=== PATIENT | female | born 1995 | race Caucasian/White ===

== ENCOUNTER 2019-08-05 11:45 | Emergency (ER) | payer BC, SELFPAY ==
[2019-08-05 11:48] VITALS: BP 130/82; PULSE 93; RESP 16; TEMP 36.7; O2SAT 99
--- NOTE | 2019-08-05 12:07 | ED.GENADULT ---
HPI - General Adult General Chief complaint: Upper Respiratory Infection Stated complaint: sore throat/cough/mucus Time Seen by Provider: 08/05/19 12:09 Source: patient Mode of arrival: ambulatory Limitations: no limitations History of Present Illness HPI narrative: 23-year-old female patient presents to the [facility] with complaints of allergies and sinus symptoms. Patient states that she typically gets these symptoms this time a year when the weather starts to change. Patient states that she has had a raspy voice, drainage to the back of the throat, runny nose, stuffy nose and a little bit of pressure to the head. Denies any fevers, body aches, chills. Patient states she does not think she has strep throat. Patient wound make sure that she did not need antibiotics for a sinus infection. Patient states her symptoms have been going on for about 3 to 4 days. Patient states she has tried Sudafed and Zyrtec for her symptoms. Related Data Home Medications Medication Instructions Recorded Confirmed Lo Loestrin Fe 1 tablet PO DAILY 04/01/19 04/01/19 Ozempic 0.5 mg SUBCUT WEEKLY 04/01/19 04/01/19 metformin 500 mg PO BID 04/01/19 04/01/19 propranolol 20 mg PO DAILY 08/05/19 08/05/19 Allergies Allergy/AdvReac Type Severity Reaction Status Date / Time amitriptyline Allergy Unknown ITCHING Verified 03/31/19 21:06 erythromycin base Allergy Unknown Unknown Verified 03/31/19 21:06 gabapentin Allergy Unknown ITCHING Verified 03/31/19 21:06 peanut Allergy Unknown Unknown Verified 03/31/19 21:06 tramadol Allergy Unknown ITCHING Verified 03/31/19 21:06 tree nuts Allergy Anaphylaxis Uncoded 08/05/19 11:52 Review of Systems Review of Systems: Narrative: CONSTITUTIONAL: Denies fever, chills, or sweats. EYES: Denies visual changes, redness, or discharge. ENT: Positive rhinorrhea, congestion, sore throat, denies otalgia. CARDIOVASCULAR: Denies chest pain, palpitations, or edema. RESPIRATORY: Positive mild nonproductive cough, denies dyspnea. GASTROINTESTINAL: Denies abdominal pain, nausea, vomiting, or diarrhea. GENITOURINARY: Denies dysuria or hematuria. SKIN: Denies rash or itching. MUSCULOSKELETAL: Denies back pain, joint pain, or myalgia. NEUROLOGIC: Denies headache, numbness, or weakness. PSYCHIATRIC: Denies anxiety or depression. [facility] Past Medical History Medical History Morbid obesity with BMI of 45.0-49.9, adult Polycystic ovarian syndrome Surgical History Surgical History History of root canal procedure Hx of tonsillectomy [place] teeth extracted Family History Family History Grandparent Hypertension Malignant neoplasm of prostate Family history of malignant neoplasm of male breast Family history of coronary artery disease Diabetes mellitus Sibling Family history of mental disorder Other Cerebrovascular accident Family history of allergic disorder Family history of cardiovascular disease Family history of elevated blood lipids Social History Social History Social History: She lives in [place] with her parents and 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 Smoking status: Never smoker Substance use: never Gender identity (if verbalized by the patient): Female Spiritual care concerns: No Agree to blood products: Yes Comments At the time of my signature I agree with nursing past medical history, surgical, social, and family history. There is no relevant family history pertinent to the presenting complaint. Exam Narrative: Exam Narrative: GENERAL: Well-appearing, well-nourished, and in no acute distress. HEAD: Normocephalic, atraumatic. Slight tenderness noted to maxillary sinuses EYES: PERRLA and EOMI. ENT: Nares with erythema and edema noted bilaterally, no rhino
== END 2019-08-05 12:23 | disposition home or self-care (01) ==
PROVIDERS: Emergency Provider Nurse Practitioner Family
DX: J30.2 Other seasonal allergic rhinitis (principal); E66.01 Morbid (severe) obesity due to excess calories; Z68.42 Body mass index [BMI] 45.0-49.9, adult
CPT/HCPCS: 99211; G0463

== ENCOUNTER 2020-09-03 13:33 | Outpatient (CLI) | payer OTHER, SELFPAY ==
--- NOTE | ~2020-09-03 | XR_ITS ---
EXAMINATION: XR lumbar spine min 4V DATE: 09/03/2020 14:27 INDICATION: Acute low back pain TECHNIQUE: Anteroposterior, lateral, and bilateral oblique views of the lumbar spine, and cone-down l ateral view of the lumbosacral junction were obtained. COMPARISON: 03/04/2015 FINDINGS: There is no fracture, dislocation, or subluxation. The vertebral body heights, alignment, a nd intervertebral disc spaces are normal. IMPRESSION: 1. No acute osseous abnormality. Reviewed, dictated and finalized at location A.
--- NOTE | ~2020-09-03 | XR_ITS ---
EXAMINATION: XR thoracic spine 2V DATE: 09/03/2020 14:26 INDICATION: Right-sided back pain TECHNIQUE: AP and lateral views of the thoracic spine were obtained. COMPARISON: 03/04/2015 FINDINGS: There is chronic unchanged mild anterior wedging in the midthoracic spine. Vertebral body h eights are otherwise maintained. There is no fracture. Alignment is normal. The intervertebral disc s pace heights are maintained. IMPRESSION: 1. No acute osseous abnormality. Reviewed, dictated and finalized at location A.
--- NOTE | ~2020-09-03 | US_ITS ---
EXAMINATION: US soft tissue lower back DATE: 09/03/2020 14:13 INDICATION: Left low back mass. TECHNIQUE: Multiple grayscale and Doppler ultrasound images of the left lower back were obtained. COMPARISON: CT abdomen and pelvis 04/18/2009 FINDINGS: There is no abnormal mass in the patient's area of concern in the left lower back. IMPRESSION: 1. No abnormal mass in the patient's area of concern in the left lower back. Reviewed, dictated and finalized at location A.
== END 2020-09-03 13:34 | disposition home or self-care (01) ==
DX: R22.2 Localized swelling, mass and lump, trunk (principal); M54.6 Pain in thoracic spine
CPT/HCPCS: 72070; 72110; 76705

== ENCOUNTER 2021-03-04 16:58 | Emergency (ER) | payer OTHER, SELFPAY ==
--- NOTE | ~2021-03-04 | XR_ITS ---
EXAMINATION: XR finger 3rd LT min 2V DATE: 03/04/2021 17:21 INDICATION: Left hand third digit injury and pain and swelling. TECHNIQUE: 4 views of left hand third digit were obtained. COMPARISON: None. FINDINGS: Bone alignment is normal. No fracture. Joint spaces are well maintained. IMPRESSION: 1. No fracture. Reviewed, dictated and finalized at location A. IMPRESSION: 1. No fracture.
[2021-03-04 17:06] VITALS: BP 167/92; PULSE 94; RESP 16; TEMP 36.4; O2SAT 100
--- NOTE | 2021-03-04 17:24 | ED.UPPEXIN ---
HPI - Extremity Injury (Upper) General Chief Complaint: Extremity Injury, Upper Stated Complaint: lt hand finger injury Time Seen by Provider: 03/04/21 17:15 Source: patient, RN notes reviewed and old records reviewed Mode of arrival: ambulatory Limitations: no limitations History of Present Illness HPI narrative: 25-year-old female who presents to [facility] with complaints of injury to her dorsal middle finger when she was carrying a moving box of hard bound books and ran into door frame hitting her finger. Patient has swelling and bruising to her left middle finger dorsal aspect at the mid aspect of finger PIP area with pain on movement. Patient denies any tingling or numbness to her left middle finger or hand, nail bed has brisk capillary refill. MD complaint: injury to: finger Related Data Home Medications Medication Instructions Recorded Confirmed Lo Loestrin Fe 1 tablet PO DAILY 04/01/19 04/01/19 Zyrtec 03/04/21 spironolactone 03/04/21 Allergies Allergy/AdvReac Type Severity Reaction Status Date / Time amitriptyline Allergy Unknown ITCHING Verified 03/31/19 21:06 erythromycin base Allergy Unknown Unknown Verified 03/31/19 21:06 gabapentin Allergy Unknown ITCHING Verified 03/31/19 21:06 peanut Allergy Unknown Unknown Verified 03/31/19 21:06 tramadol Allergy Unknown ITCHING Verified 03/31/19 21:06 tree nuts Allergy Anaphylaxis Uncoded 08/05/19 11:52 Review of Systems Review of Systems: CONSTITUTIONAL: Denies fever, chills, or sweats. EYES: Denies visual changes, redness, or discharge. ENT: Denies rhinorrhea, congestion, sore throat, or otalgia. CARDIOVASCULAR: Denies chest pain, palpitations, or edema. RESPIRATORY: Denies cough or dyspnea. GASTROINTESTINAL: Denies abdominal pain, nausea, vomiting, or diarrhea. GENITOURINARY: Denies dysuria or hematuria. SKIN: Denies rash or itching. MUSCULOSKELETAL: Denies back pain,positive for pain to left middle finger dorsal aspect pip joint area, or myalgia. NEUROLOGIC: Denies headache, numbness, or weakness. PSYCHIATRIC: Denies anxiety or depression. All systems reviewed & are unremarkable except as noted in HPI and below PMFSH Past Medical History Medical History (Updated 03/04/21 @ 18:03 by Soo Burciaga NP) Asthma Eczema Fracture of both arms Morbid obesity with BMI of 45.0-49.9, adult Pneumonia Polycystic ovarian syndrome Surgical History Surgical History (Updated 03/04/21 @ 18:04 by Soo Burciaga NP) History of ear surgery History of root canal procedure Hx of tonsillectomy [place] teeth extracted Family History Family History Grandparent Hypertension Malignant neoplasm of prostate Family history of malignant neoplasm of male breast Family history of coronary artery disease Diabetes mellitus Sibling Family history of mental disorder Other Cerebrovascular accident Family history of allergic disorder Family history of cardiovascular disease Family history of elevated blood lipids Social History Social History Social History: She lives in [place] with 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 Smoking status: Never smoker Alcohol use details: Socially, once every few months Substance use: never Gender identity (if verbalized by the patient): Female Spiritual care concerns: No Agree to blood products: Yes Comments At time of signature, agree with nursing past medical, surgical, social and family history. There is no relevant family history pertinent to the presenting complaint Exam Narrative: GENERAL: Well-appearing, well-nourished, and in no acute distress. HEAD: Normocephalic, atraumatic. EYES: PERRLA and EOMI. ENT: Nares clear, no rhinorrhea or epistaxis. Mucous membranes moist. NECK: Supple.no lymphadenopathy CHEST: Clear to auscultation. No respiratory distress. HE
== END 2021-03-04 17:45 | disposition home or self-care (01) ==
PROVIDERS: Emergency Provider Registered Nurse
DX: S60.032A Contusion of left middle finger without damage to nail, initial encounter (principal); W22.09XA Striking against other stationary object, initial encounter; J45.909 Unspecified asthma, uncomplicated; E66.01 Morbid (severe) obesity due to excess calories; Z68.42 Body mass index [BMI] 45.0-49.9, adult; E28.2 Polycystic ovarian syndrome
CPT/HCPCS: 73140; 99213; G0463

== ENCOUNTER 2021-10-11 11:01 | Emergency (ER) | payer BC, SELFPAY ==
[2021-10-11 11:24] VITALS: BP 156/108; PULSE 83; RESP 16; TEMP 36.2; O2SAT 100
--- NOTE | 2021-10-11 12:11 | ED.GENADULT ---
HPI - General Adult General Chief complaint: Skin/Abscess/Foreign Body Stated complaint: LUMP ON STOMACH Time Seen by Provider: 10/11/21 12:11 Source: patient Mode of arrival: ambulatory Limitations: no limitations History of Present Illness HPI narrative: 25-year-old female patient presents to the [facility] with complaints of a lump on the stomach since August. Patient states she feels like the lump is getting bigger but denies any pain to the area. Denies that it is moving around. Denies any fevers, body aches or chills. Denies any weight loss. Patient does have a history of PCOS which she is just taking control for. Denies any nausea, vomiting or diarrhea. Colic states that she has called to try and get in with her primary doctor but they cannot see her until December. Related Data Home Medications Medication Instructions Recorded Confirmed Lo Loestrin Fe 1 tablet PO DAILY 04/01/19 04/01/19 Zyrtec 03/04/21 spironolactone 03/04/21 Allergies Allergy/AdvReac Type Severity Reaction Status Date / Time amitriptyline Allergy Unknown ITCHING Verified 03/31/19 21:06 erythromycin base Allergy Unknown Unknown Verified 03/31/19 21:06 gabapentin Allergy Unknown ITCHING Verified 03/31/19 21:06 peanut Allergy Unknown Unknown Verified 03/31/19 21:06 tramadol Allergy Unknown ITCHING Verified 03/31/19 21:06 tree nuts Allergy Anaphylaxis Uncoded 08/05/19 11:52 Review of Systems Review of Systems: CONSTITUTIONAL: Denies fever, chills, or sweats. EYES: Denies visual changes, redness, or discharge. ENT: Denies rhinorrhea, congestion, sore throat, or otalgia. CARDIOVASCULAR: Denies chest pain, palpitations, or edema. RESPIRATORY: Denies cough or dyspnea. GASTROINTESTINAL: Denies abdominal pain, nausea, vomiting, or diarrhea. Positive mass to abdomen since August GENITOURINARY: Denies dysuria or hematuria. SKIN: Denies rash or itching. MUSCULOSKELETAL: Denies back pain, joint pain, or myalgia. NEUROLOGIC: Denies headache, numbness, or weakness. PSYCHIATRIC: Denies anxiety or depression. [facility] Past Medical History Medical History Asthma Eczema Fracture of both arms Morbid obesity with BMI of 45.0-49.9, adult Pneumonia Polycystic ovarian syndrome Surgical History Surgical History History of ear surgery History of root canal procedure Hx of tonsillectomy [place] teeth extracted Family History Family History Grandparent Hypertension Malignant neoplasm of prostate Family history of malignant neoplasm of male breast Family history of coronary artery disease Diabetes mellitus Sibling Family history of mental disorder Other Cerebrovascular accident Family history of allergic disorder Family history of cardiovascular disease Family history of elevated blood lipids Social History Social History Social History: She lives in [place] with her parents and 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 Smoking status: Never smoker Alcohol use details: Socially, once every few months Substance use: never Gender identity (if verbalized by the patient): Female Spiritual care concerns: No Agree to blood products: Yes Comments At the time of my signature I agree with nursing past medical history, surgical, social, and family history. There is no relevant family history pertinent to the presenting complaint. Exam Narrative: GENERAL: Well-appearing, well-nourished, and in no acute distress. HEAD: Normocephalic, atraumatic. EYES: PERRLA and EOMI. ENT: Nares clear, no rhinorrhea or epistaxis. Mucous membranes moist. NECK: Supple. No lymphadenopathy CHEST: Clear to auscultation. No respiratory distress. HEART: Regular rate and rhythm. No murmur heard. Normal peripheral pulses.
== END 2021-10-11 12:39 | disposition home or self-care (01) ==
PROVIDERS: Emergency Provider Nurse Practitioner Family
DX: R19.02 Left upper quadrant abdominal swelling, mass and lump (principal); J45.909 Unspecified asthma, uncomplicated; E28.2 Polycystic ovarian syndrome; E66.01 Morbid (severe) obesity due to excess calories; Z68.42 Body mass index [BMI] 45.0-49.9, adult
CPT/HCPCS: 99211; G0463

== ENCOUNTER → 2021-10-20 14:55 | Outpatient (CLI) | payer BC, SELFPAY ==
--- NOTE | ~2021-10-20 | CT_ITS ---
EXAMINATION: CT abdomen wo con DATE: 10/20/2021 15:22 INDICATION: Palpable left upper quadrant abdominal mass TECHNIQUE: Computed tomography (CT) of the abdomen and pelvis was performed without intravenous contr ast. Automated exposure control and iterative reconstruction technique were employed. The dose-length product was 732.77 mGy-cm. COMPARISON: None FINDINGS: Lower thorax: Unremarkable Liver: Normal. Biliary/Gallbladder: Gallbladder is normal. No bile duct dilation. Pancreas: No mass or duct dilation. Spleen: Normal. Adrenals:No mass. Kidneys: No mass, stone, or hydronephrosis. GI tract: No small or large bowel dilation. Normal partially visualized appendix. Mesentery/Peritoneum: No ascites, mass, or free air. Retroperitoneum: No mass. Soft Tissues: Soft tissues and body wall unremarkable. No abnormality detected in the left upper quad rant or deep to the region of the radiopaque marker. Bones: No acute osseous finding. IMPRESSION: Normal CT abdomen findings. No CT evidence of a left upper quadrant mass. Reviewed, dictated and finalized at location K.
== END ==
DX: R19.00 Intra-abdominal and pelvic swelling, mass and lump, unspecified site (principal)
CPT/HCPCS: 74150

== ENCOUNTER → 2022-07-30 13:35 | Outpatient (CLI) | payer BC, SELFPAY ==
--- NOTE | ~2022-07-30 | MR_ITS ---
MRI of the right ankle Clinical history: Tenosynovitis Technique: Coronal proton-density and proton-density fat-sat images, axial proton-density and proton- density fat-sat images, and sagittal proton-density and proton-density fat-sat images were acquired. Findings: Syndesmotic ligaments are intact. Anterior and posterior talofibular ligaments, and calcane ofibular ligament are intact. Deltoid ligament is intact. Medial flexor tendons, peroneal tendons, anterior extensor tendons, and Achilles tendon are intact. There is no osteochondral lesion of the talar dome. Bone marrow signals are unremarkable. Visualized joint spaces are intact. No significant joint effusion identified. Plantar fascia is intact. Normal signal preserved in the sinus Tarsi. There is subcutaneous soft tiss ue edema about the ankle, lateral side worse than medial. No abscess or focal fluid collection identi fied. Impression: Subcutaneous soft tissue edema about the ankle, nonspecific. No other significant abnormality identified. Reviewed, dictated and finalized at [facility]. [facility] Impression: Subcutaneous soft tissue edema about the ankle, nonspecific. No other significant abnormality identified.
== END ==
PROVIDERS: PCP Podiatrist Foot & Ankle Surgery; Visit Provider Podiatrist Foot & Ankle Surgery
DX: M65.871 Other synovitis and tenosynovitis, right ankle and foot (principal); M79.89 Other specified soft tissue disorders
CPT/HCPCS: 73721

== ENCOUNTER 2022-09-02 00:07 | Day surgery (SDC) | payer BC, SELFPAY ==
[2022-08-26 09:43] VITALS: BMI 50.8
--- NOTE | 2022-08-26 09:48 | PC.NURSE ---
Report to the Outpatient Waiting Room, entrance under the green pavilion located off [facility], at time 0600 on date 09/02/22. Planned Procedure Time: 0730. Time changes happen often and if your time is changed the preop area will call you the afternoon before. - You and your visitor will be asked to self-screen and do not enter if you have any COVID symptoms. - Only one visitor is requested with a max of two and NO children visitors are allowed at this time. - The patient visitor may be requested to leave or wait in car when not with patient due to distancing restrictions. - A mask is optional within the hospital at this time. Patients may have clear liquids (water, carbonated beverages, clear teas, apple juice) until 3 hours prior to surgery with a maximum of 20 ounces. - No food from midnight until time of surgery Take the following medications with a SIP of water the morning of surgery: TYLENOL IF NEEDED DO NOT STOP ANY OF YOUR OTHER PRESCRIPTION MEDICATIONS PRIOR TO SURGERY EXCEPT THE FOLLOWING Medications to discontinue per physician: VITAMINS/SUPPLEMENTS Date to take last dose: 08/29/22 Please no make-up, nail citizen of [place], hairspray, perfume, deodorant, or body powder the day of surgery. No jewelry (including any body piercings) or valuables the day of surgery, leave them at home. Please take a shower or bath the night before, or the morning of, surgery with an antibacterial soap. Wear comfortable, loose fitting clothing. - Jewelry must be removed prior to entering the operating room. Rings and piercings that are not removed may be cut off. - The hospital will not accept responsibility for valuables. - Please leave all valuables, including medications, at home the day of surgery. If you are going home after surgery, a licensed stake driver must drive you home. - NO public transportation without another adult if you receive anesthesia. - We recommend that an adult stay with you for 24 hours following discharge. - We also recommend that you do not drive, make important decision, drink alcoholic beverages, or take any drugs that were not prescribed by your health care provider for at least 24 hours after your discharge time. Follow any additional instructions given to you from your surgeon. If you or anyone in your household have experienced Covid symptoms in the past week, please notify your surgeon or the nurse liaison at the phone number below for possible testing. Telephone instructions given to PT - TRENT HANSON and asked if any additional questions and then verbalized understanding. Patient advised to call surgeon office or pre surgery nurse liaison [phone] if any additional questions.
[2022-09-02] VITALS (9 sets, daily range): BP systolic 106–141; BP diastolic 61–93; PULSE 92–109; RESP 12–25; TEMP 36.2–36.3; O2SAT 98–100
[2022-09-02] MEDS: LACTATED RINGERS 1,000 ML 30 ML IV CONT ×2 (07:00→09:22)
--- NOTE | 2022-09-02 07:17 | WPDHPUPDATE1 ---
History and Physical Update Update Date/Time: 09/02/22 07:17 History and Physical has been reviewed, including an updated exam of the patient. There are NO changes in the patient's condition. Risks, benefits, and alternatives have been discussed and questions answered. Patient agrees to proceed with procedure.
--- NOTE | 2022-09-02 07:23 | WPDANESEPPF ---
Anes - Initial Pre Proc Eval Procedure: Operation Date: 09/02/22 07:30 Proposed Procedures p Incision and Drainage Complicated Pilonidal Cyst - Nehemias Hoyos MD Date/Time: 09/02/22 07:23 Surgeon: Nehemias Hoyos MD Pre Op Diagnosis: Pilonidal Cyst Complex Patient Data Age: 26 Gender: F Height: 1.66 m Weight: 142.5 kg Last Vital Signs Temp 97.4 F L 09/02/22 06:18 Pulse 102 H 09/02/22 06:18 Resp 20 09/02/22 06:18 BP 138/89 09/02/22 06:18 Pulse Ox 98 09/02/22 06:18 O2 Del Method Room Air 09/02/22 06:18 Allergies Allergy/AdvReac Type Severity Reaction Status Date / Time sulfamethoxazole Allergy Intermediate Rash Verified 09/02/22 06:51 [From Bactrim] trimethoprim [From Bactrim] Allergy Intermediate Rash Verified 09/02/22 06:51 amitriptyline Allergy Unknown ITCHING Verified 09/02/22 06:51 erythromycin base Allergy Unknown Unknown Verified 09/02/22 06:51 gabapentin Allergy Unknown ITCHING Verified 09/02/22 06:51 peanut Allergy Unknown Unknown Verified 09/02/22 06:51 tramadol Allergy Unknown ITCHING Verified 09/02/22 06:51 tree nuts Allergy Anaphylaxis Uncoded 09/02/22 06:51 Home Medications Medication Instructions Recorded Confirmed Type norethindrone 1 mg-ethinyl 1 tablet PO DAILY 04/01/19 09/02/22 History estradiol 10 mcg (24)-iron 10 mcg(2) tablet (Lo Loestrin Fe) spironolactone 50 mg tablet 50 mg PO DAILY 03/04/21 09/02/22 History acetaminophen 500 mg tablet 1,000 mg PO BID PRN Pain 08/26/22 09/02/22 History cetirizine 10 mg tablet (Zyrtec) 10 mg PO DAILY 08/26/22 09/02/22 History Patient hx anesthesia problems: none Family hx anesthesia problems: none Results Review: All pre-operative results and documents have been reviewed as part of the pre-operative evaluation. [facility] Past Medical History Medical History (Updated 08/06/22 @ 09:17 by Jory Rosado) Asthma Eczema Fracture of both arms Morbid obesity with BMI of 45.0-49.9, adult Pneumonia Polycystic ovarian syndrome Surgical History Surgical History H/O bilateral salpingectomy 2021 [facility] History of ear surgery History of root canal procedure Hx of tonsillectomy [place] teeth extracted Family History Family History Grandparent Hypertension Malignant neoplasm of prostate Family history of malignant neoplasm of male breast Family history of coronary artery disease Diabetes mellitus Sibling Family history of mental disorder Other Cerebrovascular accident Family history of allergic disorder Family history of cardiovascular disease Family history of elevated blood lipids Social History Social History Social History: She lives in [place] with her parents and 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 Gender identity (if verbalized by the patient): Female Spiritual care concerns: No Agree to blood products: Yes Anes - Eval Final PreProcedure Day of Procedure 09/02/22 07:23 Patient weight: super morbidly obese Heart: regular rate and rhythm Lungs: clear to auscultation Airway: Mallampati scale class III Neurological: alert and oriented Last oral intake: >/= 8 hours ASA classification: III Emergent: no Anesthetic plan: proceed Anesthesia type and monitoring: general ETT and standard monitoring Results Review: All pre-operative results and documents have been reviewed as part of the pre-operative evaluation. Informed Consent: The patie
[2022-09-02] MEDS: ceFAZolin 3 GM/D5W 100 ML 100 ML IVPB (07:30)
--- NOTE | 2022-09-02 09:44 | P.OP_ITS ---
Procedure Note - Detailed Date of Procedure 09/02/22 Pre-op Diagnosis Pilonidal Cyst Complex Post-op Diagnosis Same (Complicated pilonidal cyst) Procedure Performed Excision complicated pilonidal cyst with 15 cm layered closure Surgeon Nehemias Hoyos MD Vice President Of Marketing Livan PATEL Anesthesia General Indications Patient is a 26-year-old woman with morbid obesity and polycystic ovarian syndrome. 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 She was seen in the office and is taken to surgery now for incision and drainage or removal. Findings Pilonidal cyst did not have any actively draining areas or signs of infection. It was completely excised and the extensive layered closure was performed. Description of Procedure Patient was taken to surgery and induced into general anesthesia. She was then placed in a prone position so that the sacral and coccyx area was exposed. The buttocks were taped apart. Prep and drape was carried out. I initially probed both of the clefts as well as the left-sided discolored area of skin which had been lexi dig in the office. No openings or purulent fluid were seen. I then opened over a thin area on the left-sided upper gluteal discolored skin and was able to penetrate into a pilonidal cyst cavity. The cavity did progress down to the area of both of the clefts. It went cephalad a couple of cm as well. With the general location of the pilonidal cyst I went ahead with excision. An ellipse with a wider excision to include the discolored skin was then created with the cautery. Cautery was used for hemostasis. I then dissected through the subcutaneous and removed the entire pilonidal cyst without entering the cyst. Cautery was then used to achieve good hemostasis. I then closed the wound with interrupted suture in multiple layers. I started with 0 PDS for the presacral fascial layer. 0 Vicryl was then used for the deep subcutaneous tissue. Then at least 2 if not 3 layers of subcutaneous interrupted 3-0 Vicryl sutures were placed. Great care was taken to not leave any space at all. Finally the skin was closed with vertical mattress sutures of 2-0 nylon. The wound was dressed with Xeroform gauze fluffs and Medipore tape. The patient was returned to a supine position, awakened and taken to recovery in good condition. Sponge needle counts were correct x2. Estimated Blood Loss -50 Drains No Packing No Pathology Yes (Pilonidal cyst) Complications None Condition Stable Disposition PACU [facility] Billing Surgery - Charge Forward: Surgery Billing (Excision complicated pilonidal cyst with 15 cm layered closure)
[2022-09-02] MEDS: KETOROLAC 30 MG/ML VIAL (*BKC) IV PUSH (10:58)
== END 2022-09-02 11:48 | disposition home or self-care (01) ==
PROVIDERS: PCP Nurse Practitioner Family; Visit Provider Surgery
PROC: (CPT 11772; principal; 2022-09-02 07:30)
DX: L05.91 Pilonidal cyst without abscess (principal); E28.2 Polycystic ovarian syndrome; E66.01 Morbid (severe) obesity due to excess calories; Z68.43 Body mass index [BMI] 50.0-59.9, adult
CPT/HCPCS: 11772; 88305; A9270; J0330; J0690; J1885; J2250; J2405; J2704; J3010; J7120; Q9968

== ENCOUNTER → 2022-09-29 07:57 | Outpatient (CLI) | payer BC, SELFPAY ==
--- NOTE | ~2022-09-29 | US_ITS ---
EXAMINATION: US thyroid DATE: 09/29/2022 08:15 INDICATION: Nontoxic goiter. TECHNIQUE: Multiple ultrasound images of the thyroid were obtained. COMPARISON: None. FINDINGS: The right thyroid lobe measures 5.5 x 1.6 x 2.0 cm. The left thyroid lobe measures 5.0 x 1.2 x 1.8 c m. In the right thyroid lobe, there is a 9 mm solid, hypoechoic, wider than tall nodule with smooth margin without echogenic foci (TI-RADS TR4). IMPRESSION: 1. Small thyroid nodule, likely not clinically significant. No follow-up is needed. Reviewed, dictated and finalized at location A. IMPRESSION: 1. Small thyroid nodule, likely not clinically significant. No follow-up is nee ded.
== END ==
PROVIDERS: PCP Nurse Practitioner Family; Visit Provider Internal Medicine Endocrinology, Diabetes & Metabolism
DX: E04.9 Nontoxic goiter, unspecified (principal)
CPT/HCPCS: 76536

== ENCOUNTER 2023-09-02 16:11 | Outpatient (CLI) | payer OTHER, SELFPAY ==
--- NOTE | ~2023-09-02 | MR_ITS ---
EXAMINATION: MR foot RT wo con DATE: 09/02/2023 16:51 INDICATION: Arthralgia with pain at the dorsal right mid foot radiating to the ankle TECHNIQUE: Magnetic resonance imaging (MRI) of the right mid/hindfoot and ankle was performed without intravenous contrast. Sequences included sagittal T1-weighted FSE, sagittal fluid sensitive FSE STIR , coronal PD-weighted FS FSE, coronal T1-weighted FSE, axial PD-weighted FS FSE, and axial PD-weighte d FSE. COMPARISON: None FINDINGS: Deep and superficial deltoid ligaments as well as the spring ligament complex are normal. The anterio r and posterior inferior tibiofibular ligaments are normal. The anterior talofibular, calcaneofibular and posterior talofibular ligaments are normal. Lisfranc ligament complex is normal. Achilles tendon is normal. The peroneus longus tendon is normal. Mild tendinopathy and longitudinal s plit tearing of the peroneus brevis tendon centered at the level of the tip of the lateral malleolus. The tibialis anterior and extensor hallucis longus and extensor digitorum longus tendons are normal. The tibialis posterior, flexor digitorum longus and flexor hallucis longus tendons are normal. Small plantar calcaneal spur at the calcaneal origin of the otherwise normal plantar aponeurosis. No assoc iated marrow or soft tissue edema to suggest acute plantar fasciitis. Bone alignment is normal. There is marrow edema at the bases of the third and fourth metatarsals. No evident fracture line and differential would include low-grade stress injury or osteoarthritis relate d subarticular edema-like signal change associated with either the intermetatarsal or tarsal metatars al articulations. There is mild osteoarthritis with subarticular cystlike change along the distal art icular surface of the navicular along its articulation with the mid cuneiform. No pathologic marrow r eplacing process. There is subarticular edema about the ankle and extending over the dorsolateral asp ect of the mid and hindfoot. Physiologic amount fluid in the joint space with no joint effusions or o ther abnormal fluid collections. IMPRESSION: 1. Marrow edema at the bases of the third and fourth metatarsals which could represent degenerative s ubarticular edema-like signal change related to mild osteoarthritis at the tarsometatarsal or interme tatarsal articulations or low-grade stress injury without evident fracture line. 2. Additional mild osteoarthritis at the navicular cuneiform articulation with mild navicular subarti cular cystlike change. 3. Mild tendinopathy and longitudinal split tearing of the peroneus brevis tendon. Reviewed, dictated and finalized at location A. IMPRESSION: 1. Marrow edema at the bases of the third and fourth metatarsals which could re present degenerative subarticular edema-like signal change related to mild oste oarthritis at the tarsometatarsal or intermetatarsal articulations or low-grade stress injury without evident fracture line. 2. Additional mild osteoarthritis at the navicular cuneiform articulation with mild navicular subarticular cystlike change. 3. Mild tendinopathy and longitudinal split tearing of the peroneus brevis tend on.
== END 2023-09-02 16:12 ==
LOC: MICIMG 16:12
PROVIDERS: PCP Podiatrist Foot & Ankle Surgery; Visit Provider Podiatrist Foot & Ankle Surgery
DX: M19.071 Primary osteoarthritis, right ankle and foot (principal)
CPT/HCPCS: 73718

== ENCOUNTER 2024-06-21 17:04 | Emergency (ER) | payer OTHER, SELFPAY ==
--- NOTE | ~2024-06-21 | XR_ITS ---
HISTORY: cracked pinky toe on a dresser today COMPARISON: None. Reference is made to an MRI examination dated 09/02/2023 TECHNIQUE: 4 views of the right foot were performed FINDINGS: Acute minimally displaced fracture of the base of the proximal phalanx of the fifth toe is identified , single view. Fracture extends into the articular surface of the tarsal metatarsal joint space. No significant degenerative disease is noted. The base of the fifth metatarsal is intact. No calcaneal spur is noted. Moderate soft tissue swelling is identified along the dorsum of the right forefoot. IMPRESSION: Acute minimally displaced fracture of the base of the proximal phalanx of the fifth toe with extension of the fracture line into the articular surface. Reviewed, dictated and finalized at location A. OR TAX ACCOUNTANT IMPRESSION: Acute minimally displaced fracture of the base of the proximal pha lanx of the fifth toe with extension of the fracture line into the articular vuong rface.
[2024-06-21 17:16] VITALS: BP 165/110; PULSE 88; RESP 15; TEMP 36.4; O2SAT 99
--- NOTE | 2024-06-21 17:18 | ED.EXTPRO ---
HPI - Extremity Problem General Chief complaint: Extremity Injury, Lower Stated complaint: Right Foot Toe Pain Time Seen by Provider: 06/21/24 17:20 Source: patient, RN notes reviewed and old records reviewed Mode of arrival: ambulatory Limitations: no limitations History of Present Illness HPI Narrative: Patient presents with complaints of right 5th toe pain after stubbing the toe on a door earlier today. She has been taking ibuprofen for her symptoms with moderate relief. Reports pain is worse with weight-bearing, better with rest. Denies other injury and trauma. Voices no other concerns or complaints today Related Data Home Medications ?Medication ?Instructions ?Recorded ?Confirmed ?Last Taken ?Type norethindrone 1 mg-ethinyl 1 tablet PO DAILY 04/01/19 10/31/22 Unknown History estradiol 10 mcg (24)-iron 10 mcg(2) tablet (Lo Loestrin Fe) cetirizine 10 mg tablet (Zyrtec) 10 mg PO DAILY 08/26/22 10/31/22 Unknown History mecobalamin (vitamin B12) 10,000 mcg subcut 10/29/22 10/31/22 Unknown History mcg solution for injection spironolactone 50 mg tablet 100 mg PO DAILY 10/29/22 10/31/22 Unknown History Allergies Allergy/AdvReac Type Severity Reaction Status Date / Time sulfamethoxazole (From Allergy Intermediate Rash Verified 06/21/24 17:07 Bactrim) trimethoprim (From Bactrim) Allergy Intermediate Rash Verified 06/21/24 17:07 amitriptyline Allergy Unknown ITCHING Verified 06/21/24 17:07 erythromycin base Allergy Unknown Unknown Verified 06/21/24 17:07 gabapentin Allergy Unknown ITCHING Verified 06/21/24 17:07 peanut Allergy Unknown Unknown Verified 06/21/24 17:07 tramadol Allergy Unknown ITCHING Verified 06/21/24 17:07 tree nuts Allergy Anaphylaxis Uncoded 06/21/24 17:07 Review of Systems Review of Systems: All systems reviewed & are unremarkable except as noted in HPI and below Constitutional: Constitutional: Reports no additional constitutional complaints ENT: Reports system reviewed and no additional complaints, except as documented Cardiovascular: Cardiovascular: Reports no additional cardiovascular complaints Respiratory: Respiratory: Reports no additional respiratory complaints Gastrointestinal: Gastrointestinal: Reports no additional gastrointestinal complaints Musculoskeletal: Musculoskeletal: Reports no additional musculoskeletal complaints and Reports as per HPI [facility] Past Medical History Medical History Asthma Eczema Fracture of both arms Morbid obesity with BMI of 45.0-49.9, adult Pneumonia Polycystic ovarian syndrome Surgical History Surgical History H/O bilateral salpingectomy 2021 [facility] History of ear surgery History of excision of pilonidal cyst 09/02/2022: Excision complicated pilonidal cyst with 15 cm layered closure History of root canal procedure Hx of tonsillectomy [place] teeth extracted Family History Family History Grandparent Hypertension Malignant neoplasm of prostate Family history of malignant neoplasm of male breast Family history of coronary artery disease Diabetes mellitus Sibling Family history of mental disorder Other Cerebrovascular accident Family history of allergic disorder Family history of cardiovascular disease Family history of elevated blood lipids Social History Social History Social History: She lives in [place] with her parents and 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 There is no relevant family history pertinent to the patient complaint. Exam Const: General: cooperative, no acute distress, alert and awake Orientation/consciousness: oriented to person, oriented to place and oriented to time HENMT: Head: normal to inspection Resp: Effort & Inspection: normal respiratory effort and able to speak in complete sentences Auscultation: clear to auscultation bilaterally, no crackles, no rales, no rhonchi and no wheezes Cardio: Palpation: normal PMI Rate: regular rate Rhythm: regular rhythm Heart sounds: S1 normal heart sound present and S2 normal heart sound present Neuro: General: oriented to person, oriented to place and oriented to time Cranial nerves: Yes CN's II-XII intact bilaterally Extrem: Ankle/foot/toe images:  1. tenderness Psych: Appearance: grossly normal Thought process: Normal thought process present Insight: Good insight present (Psych) Judgement: Good judgement present (Psych) Course Course Level of Care: Express Care Visit Vital Signs Vital signs: Vital Signs Temperature 97.6 F 06/21/24 17:16 Pulse Rate 88 06/21/24 17:16 Respiratory Rate 15 06/21/24 17:16 Blood Pressure 165/110 H 06/21/24 17:16 Pulse Oximetry 99 06/21/24 17:16 Oxygen Delivery Room Air 06/21/24 17:16 Temperature 97.6 F 06/21/24 17:16 Pulse Rate 88 06/21/24 17:16 Respiratory Rate 15 06/21/24 17:16 Blood Pressure 165/110 H 06/21/24 17:16 Pulse Oximetry 99 06/21/24 17:16 Oxygen Delivery Room Air 06/21/24 17:16 Reviewed MDM - Extremity (Nontraumatic) MDM Narrative Medical decision making narrative: Patient with right 5th toe pain status post injury, x-ray does show fracture of the right 5th toe. Psych was markel-taped. Patient advised to follow-up with podiatry. Discharge instructions reviewed with patient, as well as provided in writing per nursing staff. The instructions also include specific and strict return/GO TO THE ER as well as f/u information. All questions have been answered, and the patient deny any further questions with discharge and discharge plan. Some parts of this dictation were generated by voice recognition software and may contain typographical and/or grammatical inaccuracies. Imaging Data My impression: Fracture of 5th proximal phalanx Radiologist's impression: [facility] [address] [place] [address] XRay Report Signed Patient: Landy Mortensen : 1995 MR#: [id number] Age: 28 Acct:[id number] Loc: [facility] ADM Date: 06/21/24Attending Dr: Ordering Physician: Tierra Jain FNP Date of Service: 06/21/24 Procedure(s): XR foot RT min 3V Accession Number(s): [id number] cc: Tierra Jain FNP; Roro GoncalvesM~ HISTORY: cracked pinky toe on a dresser today COMPARISON: None. Reference is made to an MRI examination dated 09/02/2023 TECHNIQUE: 4 views of the right foot were performed FINDINGS: Acute minimally displaced fracture of the base of the proximal phalanx of the fifth toe is identified, single view. Fracture extends into the articular surface of the tarsal metatarsal joint space. No significant degenerative disease is noted. The base of the fifth metatarsal is intact. No calcaneal spur is noted. Moderate soft tissue swelling is identified along the dorsum of the right forefoot. IMPRESSION: Acute minimally displaced fracture of the base of the proximal phalanx of the fifth toe with extension of the fracture line into the articular surface. Reviewed, dictated and finalized at location A. STIAN MINISTRIES PROFESSOR Please be advised this is a medical document. It is intended for [id number] communication. It is written in medical language and may contain unfamiliar abbreviations or verbiage. Medical documents are intended to carry relevant information, facts as evident, and the clinical opinion of the practitioner at the time of the encounter. This report may have been done utilizing a voice recognition system. Attempts have been made to correct errors. However, there may be uncorrected grammatical, spelling, and recognition errors present. The file time of this note does not necessarily represent the time of service. Dictated By: Rosanne Cook MD 06/21/24 1733 Discharge Plan Discharge Clinical Impression: Fracture of toe Patient Disposition: Home, Self-Care Condition: Stable Instructions: Antibiotic Form, P.R.I.C.E. Treatment (ED) Additional Instructions: Follow-up with musical instrument supervisor. Emergency department for new or worse symptoms Patient Language: [place] Prescriptions: No Action spironolactone 50 mg tablet 100 mg PO DAILY mecobalamin (vitamin B12) 10,000 mcg recon soln subcut Lo Loestrin Fe 1 mg-10 mcg (24)/10 mcg (2) Tablet 1 tablet PO DAILY cetirizine [Zyrtec] 10 mg Tablet 10 mg PO DAILY Follow-up/Referrals: Roro Goncalves, [facility] [Primary Care Provider] - 1 Week Stand Alone Forms: Work/School Release IP Time of Disposition: 17:51
== END 2024-06-21 18:00 | disposition home or self-care (01) ==
PROVIDERS: Emergency Provider Nurse Practitioner Family; PCP Podiatrist Foot & Ankle Surgery
DX: S92.521A Displaced fracture of middle phalanx of right lesser toe(s), initial encounter for closed fracture (principal); W22.8XXA Striking against or struck by other objects, initial encounter; J45.909 Unspecified asthma, uncomplicated; E28.2 Polycystic ovarian syndrome; E66.01 Morbid (severe) obesity due to excess calories; Z68.43 Body mass index [BMI] 50.0-59.9, adult
CPT/HCPCS: 73630; 99214; G0463

== ENCOUNTER 2024-07-18 07:43 | Outpatient (CLI) | payer OTHER, SELFPAY ==
--- NOTE | ~2024-07-18 | US_ITS ---
US abdomen complete EXAMINATION: US Abdomen Complete INDICATION: Right upper quadrant pain. PROCEDURE: Realtime High Resolution abdomen ultrasound. COMPARISON: No prior studies for comparison FINDINGS: Gallbladder within normal limits. No gallstones, pericholecystic fluid, gallbladder wall t hickening or biliary dilatation. Common bile duct measures 4 mm. Liver echotexture is diffusely increased, consistent with fatty infiltration.. Pancreas within yessy l limits. Pancreatic tail is obscured by bowel gas. Spleen is unremarkeable. Renal echotexture is w ithin normal limits bilaterally without hydronephrosis, contour deforming mass or renal stone. Right kidney measures 11.4 cm. Left kidney measures 12.5 cm. Visualized aspects of the aorta and IVC are within normal limits. Portal vein is patent. No sonograph ic Hills's sign indicated by the technologist. IMPRESSION: 1: Fatty infiltration of the liver. Reviewed, dictated and finalized at location B. FIER
== END 2024-07-18 07:44 | disposition home or self-care (01) ==
LOC: MICIMG 07:44
PROVIDERS: PCP Nurse Practitioner Family; Visit Provider Nurse Practitioner Family
DX: K76.0 Fatty (change of) liver, not elsewhere classified (principal)
CPT/HCPCS: 76700